=== PATIENT | female | born 2000 | race Hispanic/Latino ===

== ENCOUNTER 2021-09-03 19:55 | Outpatient (CLI) | payer OTHER, SELFPAY ==
[2021-09-03 20:15] VITALS: TEMP 36.7
--- NOTE | 2021-09-03 20:32 | OB.TRI.HP_ITS ---
HPI - General HPI Narrative NEO SMITH, is a 20 F at 40.0 weeks gestation who presents to triage with contractions. Patient stated contractions started this morning and continue to increase in strength. Denies any loss of fluid or vaginal bleeding. has been uncomplicated. Maternal Data Information EVETTE Calculator Estimated Delivery Date Method Current WG Current Estimate 09/03/21 Manual 40w 1d PFSH PFSH Home Medications [id number] [] 1 tab PO DAILY 09/03/21 [History Last Ta alicia 09/03/21 08:00] Allergy/AdvReac Type Severity Reaction Status Date / Time No Known Allergies Allergy Verified 09/04/21 05:14 Surgical History (Updated 09/04/21 @ 05:50 by Lily Chowdhury) History of surgery Social History Smoking Status: Never smoker History Elective abortions Hx Para 0 Spontaneous abortions Hx # Term Pregnancies Ectopic pregnancies Hx # Pregnancies Multiple births # of living children ROS Eyes Eyes: Denies blurry vision Cardiovascular Cardiovascular: Reports none; Denies chest pain at rest, chest pain with activity or dizziness Respiratory/Chest Respiratory/Chest: Denies cough or dyspnea Gastrointestinal Gastrointestinal: Reports none and other; Denies diarrhea or vomiting Genitourinary Genitourinary: Denies dysuria Musculoskeletal Musculoskeletal: Reports none Integumentary Integumentary: Reports none; Denies rash Neurologic Neurologic: Denies dizziness, headache(s) or other visual disturbances Psychiatric Psychiatric: Reports none Physical Exam Const alert and no apparent distress General Appearance: cooperative Orientation / Consciousness: awake Exam Limitations: no limitations HEENT normocephalic Eyes General Eye: normal appearance of both eyes Neck full ROM Chest inspection of chest normal Resp normal respiratory effort and normal air movement Effort and Inspection: symmetric chest movement Auscultation: clear to auscultation bilaterally Cardio regular rate GI soft to palpation, non-tender and non-distended Inspection: and other Back/Spine normal ROM Extremity full ROM, normal capillary refill and no calf tenderness Skin no rashes or lesions noted Neuro oriented x3 and CN's II-XII intact bilaterally Psych mental status grossly normal NST FHR Rate Baby A Baseline: 150 Variability:: Moderate Accelerations:: 15 x 15 Decelerations:: None NST Reactive:: Yes FHR Category:: Category I Uterine Activity:: irregular Assessment & Plan (1) Uterine contractions: (2) 40 weeks gestation of : PLAN: CE- 2-/-1- unchanged after 2 hours NST reactive Cat. 1 tracing D/C home with labor precautions and follow up in office Dr. Cole notified
[2021-09-03 20:46] VITALS: BMI 26.7
[2021-09-03 22:04] VITALS: BP 124/82; PULSE 107; TEMP 36.2; O2SAT 97
== END 2021-09-03 22:32 | disposition home or self-care (01) ==
LOC: WPOUT 20:12 → WP 20:13
PROVIDERS: Visit Provider Advanced Practice Midwife
DX: O47.1 False labor at or after 37 completed weeks of gestation (principal); Z3A.40 40 weeks gestation of pregnancy
CPT/HCPCS: 59025; 59050; 99218; G0378

== ENCOUNTER 2021-09-04 05:35 | Inpatient (IN) | payer OTHER, SELFPAY ==
[2021-09-04] VITALS (40 sets, daily range): BP systolic 81–178; BP diastolic 51–102; PULSE 79–133; RESP 16; TEMP 35.8–37.2; O2SAT 92–99; BMI 26.7
[2021-09-04] MEDS: Lactated Ringers 500 ML 999 ML IV ×2 (06:10→08:55)
[2021-09-04] MEDS: Lactated Ringers 1,000 ML 200 ML IV ×2 (06:10→11:40)
[2021-09-04 06:18] LABS: Absolute Neutrophil Count 11.5 X10^3/uL (2.0-7.7); Basophil# 0.06 X10^3/uL; Basophil% 0.4 % (0-1); Eosinophil# 0.09 X10^3/uL; Eosinophils% 0.6 % (0-5); Hematocrit 38.4 % (37-47); Hemoglobin 13.5 g/dL (12.0-15.0); Lymphocyte % 14.6 % (19-41); Mean Corp Hgb Conc 35.2 g/dL (32-36); Mean Corpuscular Hgb 33.9 pg (27.0-32.0); Mean Corpuscular Volume 96.5 fL (81-99); Mean Platelet Vol. 10.5 fl (6.2-12.0); Monocyte# 1.09 X10^3/uL; Monocyte% 7.2 % (0-10); NRBC Flagged by Analyzer 0 % (0-5); Neutrophil # 11.45 X10^3/uL (2.7-7.7); Neutrophil % 75.9 % (47-70); Platelet Count 274 K/mm3 (150-450); RBC Distribution Width CV 12.7 % (11.6-14.6); RBC Distribution Width SD 45.1 fl (35.1-43.9); Red Blood Count 3.98 M/mm3 (4.2-5.4); White Blood Count 15.1 K/mm3 (4.4-11.0)
--- NOTE | 2021-09-04 06:41 | PCM.HP.OB ---
HPI - General General Date of Admission: 09/04/21 HPI Narrative NEO SMITH, is a 20 F at 40.1 weeks gestation who presents in spontaneous labor. She was here in triage last evening for contractions and was discharged home for no cervical change. She has returned and is 5cm with bulging bag. Positive movement. No loss of fluid or vaginal bleeding. has been uncomplicated. left pylectasis noted on ultrasound but has resolved. Maternal Data Information EVETTE Calculator Estimated Delivery Date Method Current WG Current Estimate 09/03/21 Manual 40w 1d PFSH PFSH Home Medications [id number] [] 1 tab PO DAILY 09/03/21 [History Last Taken 09/03/21 08:00] Allergy/AdvReac Type Severity Reaction Status Date / Time No Known Allergies Allergy Verified 09/04/21 05:14 Surgical History (Updated 09/04/21 @ 05:50 by Lily Chowdhury) History of surgery Social History Smoking Status: Never smoker History Elective abortions Hx Para 0 Spontaneous abortions Hx # Term Pregnancies Ectopic pregnancies Hx # Pregnancies Multiple births # of living children NST FHR Rate Baby A Baseline: 135 Variability:: Moderate Accelerations:: 15 x 15 Decelerations:: None NST Reactive:: Yes FHR Category:: Category I Uterine Activity:: Every 2-3 minutes. Palpate moderate and relaxed in between ROS Eyes Eyes: Denies blurry vision, change in vision or spots in vision ENT HEENT: Denies dizziness or headache(s) Cardiovascular Cardiovascular: Denies abdominal pain, chest pain or dyspnea Respiratory/Chest Respiratory/Chest: Denies cough, dyspnea, shortness of breath at rest or shortness of breath with exertion Gastrointestinal Gastrointestinal: Denies abdominal pain, diarrhea or vomiting Genitourinary Genitourinary: Denies change in urinary stream, difficulty urinating or dysuria Musculoskeletal Musculoskeletal: Reports none Integumentary Integumentary: Denies rash Neurologic Neurologic: Denies dizziness, headache(s), memory loss or weakness Psychiatric Psychiatric: Reports none Vital Signs Vital Signs Vital Signs: 09/04/21 05:21 09/04/21 05:22 Temperature 97.0 F L Temperature Source Temporal Pulse Rate 105 H Blood Pressure 130/91 H BP Systolic 130 BP Diastolic 91 Pulse Ox 98 Weight Weight: 155 lb 13.869 oz Body Mass Index (BMI) 26.7 Physical Exam Const alert, oriented x3 and no apparent distress General Appearance: cooperative Orientation / Consciousness: awake Exam Limitations: no limitations HEENT normocephalic Head and Scalp: normal to inspection Eyes General Eye: normal appearance of both eyes Neck full ROM and no lymphadenopathy Lymph Lymphatic: no lymphadenopathy noted Chest inspection of chest normal Resp normal respiratory effort, normal air movement and clear to auscultation bilaterally Effort and Inspection: able to speak in complete sentences and symmetric chest movement Cardio regular rate and regular rhythm GI normal to inspection, nondistended, normoactive bowel sounds Back/Spine normal ROM Extremity full ROM and no calf tenderness Skin no rashes or lesions noted General Skin Exam: no breakdown Neuro oriented x3 and CN's II-XII intact bilaterally Psych mental status grossly normal and thought process normal Labs Labs Labs: Blood Type Pending Antibody Screen Pending Hct 38.4 % (37-47) Hgb 13.5 g/dL (12.0-15.0) O+ Rubella- immune HB- neg HC- neg HIV- NR RPR- NR GBS - negative Assessment & Plan (1) Spontaneous onset of labor: (2) 40 weeks gestation of : PLAN: Admit to labor and delivery Routine labs Start IV fluids and run per policy GBS negative NST reactive- Cat. 1 tracing Epidural when indicated- AROM after epidural placement Anticipate Dr. Cole notified and is collaborating physician Patient desires placement of Nexplanon after delivery prior to discharge
[2021-09-04] MEDS: fentaNYL-bupivacaine (epidural) 100 ML BAG EPIDURAL (07:37)
--- NOTE | 2021-09-04 08:52 | PCM.PN.OB ---
Subjective Subjective Resting in bed comfortable with epidural. Family at bedside. Objective Data Objective Data Vital Signs: Vital Signs Temp Pulse BP Pulse Ox 97.9 F 79 81/51 L 99 09/04/21 07:14 09/04/21 08:48 09/04/21 08:48 09/04/21 08:02 Weight: 155 lb 13.869 oz Body Mass Index (BMI) 26.7 Intake & Output: Intake and Output for Last 24 Hours 09/02/21 09/03/21 09/04/21 23:59 23:59 23:59 Intake Total 500 / 500 Balance 500 / 500 Lab / Micro Data Result Diagrams: 09/04/21 06:10 Labs: Laboratory Results - last 24 hr 09/04/21 06:10: WBC 15.1 H, RBC 3.98 L, Hgb 13.5, Hct 38.4, MCV 96.5, MCH 33.9 H, MCHC 35.2, RDW Std Deviation 45.1 H, RDW Coeff of Azucena 12.7, Plt Count 274, MPV 10.5, Immature Gran % (Auto) 1.300 H, Neut % (Auto) 75.9 H, Lymph % (Auto) 14.6 L, [place] % (Auto) 7.2, Eos % (Auto) 0.6, Baso % (Auto) 0.4, Absolute Neuts (auto) 11.5 H, Absolute Lymphs (auto) 2.20, Nucleated RBC % 0 09/04/21 06:10: Blood Type O POSITIVE, Antibody Screen NEGATIVE Micro: Microbiology 09/04/21 07:43 Nasal Secretion SARS-CoV-2 Antigen (Rapid) - Final Physical Exam Narrative AROM small amount of clear fluid. 6.5/80%/0 NST FHR Rate Baby A Baseline: 135 Variability:: Moderate Accelerations:: 15 x 15 Decelerations:: None FHR Category:: Category I Uterine Activity:: every 5 minutes moderate Assessment & Plan (1) Active labor: PLAN: 1) Arom 2) Epidural for pain management 3) Positional changes 4) notified of patient status and collaborative physician.
[2021-09-04] MEDS: Ondansetron 4 MG/2 ML Vial IV (08:54)
[2021-09-04] MEDS: Oxytocin 30 units/NS 500 ml 30 UNITS/500 ML IV.SOLN IV (09:46)
[2021-09-04] MEDS: Oxytocin 30 units/NS 500 ml 30 UNITS/500 ML IV.SOLN 334 UNITS IV (12:39)
--- NOTE | 2021-09-04 13:05 | EX.PCM.OBRPT ---
Maternal Data Information EVETTE Calculator Estimated Delivery Date Method Current WG Current Estimate 09/03/21 Manual 40w 1d Vaginal Delivery Maternal Presentation Maternal Presentation: Active Labor Maternal Presentation: Pitocin augmentation Operative Information Date of Procedure: 09/04/21 Pre-Operative Diagnosis: Active labor Post-Operative Diagnosis: with second degree perineal laceration Surgery / Procedure Performed: Spontaneous Vaginal Delivery Type of Anesthesia: Epidural Estimated Blood Loss: 450ml Time of Delivery: 12:36 Findings Description of Procedure: Progressed to complete, epidural for pain management. of viable male over 2nd degree perineal laceration, APGARS 8,9 respectively. head delivered NAGI and body forthcoming with CANx1, delivered through. Placed on maternal abdomen, stimulated and mouth and nares suctioned for secretions, strong cry. Pitocin started for active 3rd stage management. Cord clamped and cut after pulsations ceased, by FOB. Placenta delivered via expression, intact, 3vessel cord via rich. Perineum inspected and revealed 2nd degree perineal laceration, repaired under epidural analgesia with 3.0 vicryl rapide. Fundus firm, EBL 450ml. Vaginal sweep completed by me. Sponge and instrument count correct. Mom and baby stable, family bonding well. Planning to breastfeed. collaborative physician and notified of patient status. Presentation: Vertex and NAGI Amniotic Membrane Rupture Type: Artificial Amniotic Fluid Description: Clear Placental Delivery Description: Expressed Placenta Disposition: [facility] Cord Vessel Description: 3 Vessels Cord Entanglement: Around neck x 1, loose Nuchal Cord Compression: Without compression Infant A Gender: Male (1 minute): 8 (5 minute): 9 Delayed Cord Clamping: Yes Post Vaginal Delivery Medications Given After Delivery: IV Pitocin Episiotomy Description: None Laceration: 2nd degree Complication Complications: None
[2021-09-04] MEDS: Benzocaine/Lanolin/Aloe Vera 1 SPRAY EACH TOPICAL (17:00)
[2021-09-05 03:48] VITALS: BP 117/69; PULSE 95; RESP 18; TEMP 36.8; O2SAT 98
[2021-09-05 06:48] LABS: Hematocrit 31.6 % (37-47); Hemoglobin 10.7 g/dL (12.0-15.0); Mean Corp Hgb Conc 33.9 g/dL (32-36); Mean Corpuscular Hgb 33.5 pg (27.0-32.0); Mean Corpuscular Volume 99.1 fL (81-99); Mean Platelet Vol. 10.5 fl (6.2-12.0); Platelet Count 220 K/mm3 (150-450); RBC Distribution Width SD 46.6 fl (35.1-43.9); Red Blood Count 3.19 M/mm3 (4.2-5.4); White Blood Count 15.7 K/mm3 (4.4-11.0)
--- NOTE | 2021-09-05 07:31 | NURSING ---
report given to Judy Vivar RN who is assuming care of pt at this time
--- NOTE | 2021-09-05 08:07 | PCM.PROGNOTE ---
Subjective Subjective patient seen at bedside, doing well. Patient reports good pain control. lochia mild. Objective Data Objective Data Vital Signs: Vital Signs Temp Pulse Resp BP Pulse Ox 98.2 F 95 18 117/69 98 09/05/21 03:48 09/05/21 03:48 09/05/21 03:48 09/05/21 03:48 09/05/21 03:48 Oxygen Delivery Method Room Air Weight: 70.7 kg Body Mass Index (BMI) 26.7 Intake & Output: Intake and Output for Last 24 Hours 09/03/21 09/04/21 09/05/21 23:59 23:59 23:59 Intake Total 2693.37 / 2693.37 Output Total 1400 / 1400 Balance 1293.37 / 1293.37 Lab / Micro Data Result Diagrams: 09/05/21 06:30 Labs: Laboratory Results - last 24 hr 09/05/21 06:30: WBC 15.7 H, RBC 3.19 L, Hgb 10.7 L, Hct 31.6 L, MCV 99.1 H, MCH 33.5 H, MCHC 33.9, RDW Std Deviation 46.6 H, RDW Coeff of Azucena 13.0, Plt Count 220, MPV 10.5 Micro: Microbiology 09/04/21 07:43 Nasal Secretion SARS-CoV-2 Antigen (Rapid) - Final Physical Exam Const alert and oriented x3 General Appearance: cooperative HEENT normocephalic Neck General: normal visual inspection GI soft to palpation and non-distended GI Narrative: Fundus firm Extremity normal to inspection and no calf tenderness Skin no rashes or lesions noted Neuro oriented x3 and CN's II-XII intact bilaterally Psych mental status grossly normal Assessment & Plan Assessment/Plan (1) Vaginal delivery: PLAN: PPD# 1 , Doing well Routine care pain mgmt ambulation dc home
--- NOTE | 2021-09-05 08:09 | PCM.DC ---
Discharge Instructions Diet Discharge Diet: No restrictions Activity May resume sexual activity in: 6-8 weeks Dressing / Incision Call your doctor if you observe: Fever of 101 or Higher, Inability to urinate, Using more than 1 pad per hour and Uncontrolled pain Follow Up Care Please Follow Up With: Michelle Guajardo MD When: 1-2 weeks post and again at 6 weeks post . [phone] Test Results: Test results from this visit will be discussed in further detail at your follow-up appointment, if applicable. Discharge Plan Admission Admit Date/Time: 09/04/21 05:35 Attending Provider: Sylwia Burnham Primary Care Provider: Amie Pulido Discharge Orders/Prescriptions Prescriptions: No Action 1 mg Tablet 1 tab PO DAILY RF: 0
--- NOTE | 2021-09-05 08:10 | PCM.DC ---
Discharge Instructions Diet Discharge Diet: No restrictions Activity May resume sexual activity in: 6-8 weeks Dressing / Incision Call your doctor if you observe: Fever of 101 or Higher, Inability to urinate, Using more than 1 pad per hour and Uncontrolled pain Follow Up Care Please Follow Up With: Michelle Guajardo MD Test Results: Test results from this visit will be discussed in further detail at your follow-up appointment, if applicable. Discharge Plan Admission Admit Date/Time: 09/04/21 05:35 Attending Provider: Sylwia Burnham Primary Care Provider: Amie Pulido Discharge Orders/Prescriptions Prescriptions: New acetaminophen 500 mg Tablet 1,000 mg PO Q6H PRN PRN (Reason: Pain 1-10 Or Fever) Qty: 0 RF: 0 ibuprofen 600 mg Tablet 600 mg PO Q6H PRN PRN (Reason: Pain Score 1-3) Qty: 0 RF: 0 Continued [id number] 1 mg Tablet 1 tab PO DAILY RF: 0 Referrals / Follow Up: Amie Pulido MD [Primary Care Provider] - Disposition Disposition (needs filled in before D/C Order can be placed): Home, Self Care
--- NOTE | 2021-09-05 08:26 | PCM.OP.BLANK ---
Problems Associated Problem List Diagnoses (1) Contraceptive management: Operative Report Date of Procedure: 09/05/21 Pt requesting nexplanon for contraception. Nexplanon-LOT # [id number] Consent obtained and placed on chart. Left arm was bent area cleansed with chlorhexidine. At this time 1% lidocaine 4 cc was placed. Once adequate anesthesia the Nexplanon was inserted superficially. Steri-Strips were applied. Coban dressing applied. Patient tolerated well. POST procedure instructions reviewed. Prior to placement I reviewed the risks and common side effects of the Nexplanon. Patient agreed to proceed. Dr. Michelle Porter
[2021-09-05] MEDS: Etonogestrel 68 MG IMPLANT SC (08:38)
[2021-09-05 09:12] VITALS: BP 123/82; PULSE 106; RESP 16; TEMP 36.2
== END 2021-09-05 14:30 | disposition home or self-care (01) | DRG 807 ==
LOC: WPOUT 05:43 → WP 05:43
PROVIDERS: Admitting Provider Advanced Practice Midwife; PCP Internal Medicine; Visit Provider Advanced Practice Midwife
DX: O69.81X0 Labor and delivery complicated by cord around neck, without compression, not applicable or unspecified (principal); Z37.0 Single live birth; O70.1 Second degree perineal laceration during delivery; Z3A.40 40 weeks gestation of pregnancy; Z30.017 Encounter for initial prescription of implantable subdermal contraceptive
CPT/HCPCS: 59025; 59050; 85025; 85027; 86850; 86900; 86901; 87426; 99218; J7120; G0378; J2405